=== PATIENT | female | born 1970 | race Caucasian/White ===

== ENCOUNTER 2017-02-07 10:32 | Emergency (ER) | payer OTHER ==
[~2017-02-07] VITALS: Ht 157.5 cm; Wt 65.5 kg
[2017-02-07 10:36] VITALS: Ht 157.5 cm; Wt 65.5 kg
[2017-02-07] MEDS ORDERED: KETOROLAC 60 MG INJ IM STA (10:52)
[2017-02-07 11:10] LABS: URINE BLOOD (Dip) POC Negative (NEGATIVE)
--- NOTE | 2017-02-07 12:48 | RADRPT ---
PROCEDURE: XR Lumbar Spine. CLINICAL INDICATION: Low back pain. TECHNIQUE: Three views of the lumbar spine are available for review COMPARISON: None available FINDINGS: No acute fracture or dislocation is seen. The alignment is normal. The normal lumbar lordosis is preserved. No radiopaque foreign body is identified. The vertebral body heights are maintained. The intervertebral disk spaces are maintained. Small anterior and marginal osteophyte formations are seen at T10/T11, T11/T12 and L3/L4. The posterior elements are unremarkable. On the frontal view, there is normal alignment. 1.1 cm lamellated right upper quadrant calcifications suggest gallstone. IMPRESSION: 1. Mild multilevel degenerative enthesopathy. 2. Cholelithiasis. 3. No evidence of fracture or subluxation. RPTAT: QQ .Frank Sutton MD, Date Time Electronically viewed and signed by .Frank Sutton MD, on 02/07/2017 12:48 .M/
[2017-02-07] MEDS ORDERED: TRAM-40 PO (13:05)
[2017-02-07] MEDS ORDERED: CYCL-319 PO (13:05)
[2017-02-07] MEDS ORDERED: IBUP-1542 PO (13:05)
--- NOTE | 2017-02-07 13:10 | ERD ---
ER Documentation Chief Complaint Date/Time DATE: 02/07/17 TIME: 13:09 Chief Complaint lower back pain x 4 days HPI This 46-year-old female presents with low back pain for the last 4 days. May have started after lifting. She denies any history of fall and denies any weakness, bowel bladder incontinence, fevers, urinary complaints. she has a history of intermittent low back pain with movement and lifting ROS All systems reviewed and are negative except as per history of present illness. Medications Home Meds Active Scripts Cyclobenzaprine Hcl* (Cyclobenzaprine Hcl*) 10 Mg Tablet, 10 MG PO Q8 Y for PAIN , #20 TAB Prov:MARIN MORRIS MD 02/07/17 Ibuprofen* (Motrin*) 600 Mg Tab, 600 MG PO Q6H Y for PAIN, #20 TAB Prov:MARIN MORRIS MD 02/07/17 Tramadol Hcl* (Ultram*) 50 Mg Tablet, 50 MG PO Q6H Y for PAIN, #20 TAB Prov:MARIN MORRIS MD 02/07/17 PMhx/Soc Medical and Surgical Hx: pt denies Medical Hx, pt denies Surgical Hx Hx Alcohol Use: No Hx Substance Use: No Hx Tobacco Use: No Smoking Status: Never smoker Physical Exam Vitals Vital Signs Date Time Temp Pulse Resp B/P Pulse Ox O2 Delivery O2 Flow Rate FiO2 02/07/17 10:36 98.2 72 18 156/72 100 Physical Exam Const: [] Alert, [id number] per Head: Atraumatic Eyes: Normal Conjunctiva ENT: Normal External Ears, Nose and Mouth. Neck: Full range of motion..~ No meningismus. Resp: Clear to auscultation bilaterally Cardio: Regular rate and rhythm, no murmurs Abd: Soft, non tender, non distended. Normal bowel sounds Skin: No petechiae or rashes Back: No midline or flank tenderness. Tenderness in L4-5 paraspinous muscles. No midline tenderness or deformities. Ext: No cyanosis, or edema Neur: Awake and alert. Patient has normal gait without deficits or weakness. Psych: Normal Mood and Affect Results 24 hrs Laboratory Tests Test 02/07/17 11:14 Bedside Urine pH (LAB) 7.0 Bedside Urine Protein (LAB) Negative Bedside Urine Glucose (UA) Negative Bedside Urine Ketones (LAB) Negative Bedside Urine Blood Negative Bedside Urine Nitrite (LAB) Negative Bedside Urine Leukocyte Esterase (L Negative Current Medications Medications (Trade) Dose Ordered Sig/Gianna Route PRN Reason Start Time Stop Time Status Last Admin Dose Admin Ketorolac Tromethamine (Toradol) 60 mg ONCE STAT IM 02/07/17 10:52 02/07/17 10:53 DC 02/07/17 11:10 Procedures/MDM X-ray LS-Spine 3V Interpreted by me: Bones: [No fracture] Joints: [No dislocation] Foreign body: [None]. Impression-no acute findings lumbar spine x- ray Patient is given Toradol 60 mg IM Urine shows no leukocytes, nitrites, hemoglobin hCG is negative. Patient presents with low back pain for last 4 days after lifting, likely musculoskeletal. There is no evidence of epidural abscess, fracture, dislocation, cauda equina syndrome, in which she will treated with tramadol, Flexeril, ibuprofen instructions for back exercises. The patient was stable with no new complaints during the ER course. Clinically, there is no current evidence to suggest meningitis, sepsis, acute abdomen, pneumonia, acute coronary syndrome, pulmonary embolism, or any other emergent condition appearing to require further evaluation or hospitalization. The patient should certainly return for any new or worsening symptoms per the aftercare instructions. They should otherwise follow-up with her primary care doctor for reevaluation this week. Departure Diagnosis: Primary Impression: Back pain Back pain location: low back pain Chronicity: unspecified Back pain laterality: unspecified Sciatica presence: without sciatica Qualified Code: M54.5 - Low back pain without sciatica, unspecified back pain laterality, unspecified chronicity Condition: Stable Patient Instructions: Back Exercises, Lumbar, Back Pain (Acute Or Chronic) Additional Instructions: X RAY MICHAEL ARTRITIS SALLY NO EMERGENCIES, FRACTURAS. Cheque otro vez con jim doctor primario en el proximo craig or regresa para mas o nueva simptomas. MARIN MORRIS MD Feb 07, 2017 13:10
== END 2017-02-07 13:12 | disposition home or self-care (01) ==
LOC: FTE 10:32
DX: M54.5 Low back pain (principal)
CPT/HCPCS: 72100; 81003; J1885; 96372